=== PATIENT | male | born 1995 | race African-American/Black ===

== ENCOUNTER 2017-03-27 19:17 | Inpatient (IN) ==
[2017-03-27] MEDS ORDERED: HYDROcod/ACETAMIN 7.5-325 MG/15 ML UDCUP PO STA (19:41)
[2017-03-27] MEDS ORDERED: SODIUM CHLORIDE 0.9% 1,000 ML IV STA (19:41)
--- NOTE | 2017-03-27 19:44 | Emergency Department Note ---
Dewey Guo Brittany, am scribing for, and in the presence of, Rodrigo Altman MD 19:43. Anupama Guo Charles R, MD, personally performed the services described in this documentation, ascribed by Inez Palomo in my presence, and it is both accurate and complete 943 . Arrival - Arrival Chief Complaint: Non-Specific Stated Complaint: swolen lymph nodes,can hardly talk ED Nursing Triage Note: C/O Swollen lymph nodes on right side of neck/pain. Onset 2 weeks ago. Pt reports that he went to see his PCP around the time of onset and was DX with sinus infection- reports taking and completing antibiotics given and the swelling to the right side of his neck is worse. + fever on and off since onset. FSG 345 at time of triage. Mode of Arrival: Ambulatory Limitations: No Limitations Source: Patient, RN Notes Reviewed - History of Present Illness HPI Narrative: Patient is a 22 y/o black male presenting to the ED with c/o swollen and painful lymph nodes to the right side of the neck that began 2 weeks ago. Patient states that he has had some fever, R earache, difficulty swallowing secondary to pain, and slight cough with this as well. Patient presented to PCP after initial onset and was diagnosed with sinus infection and placed on oral Penicillin. He has since completed the course of abx and reports that the swelling to the R side of his neck has gotten worse. Patient does have a history of IDDM and during triage patient was noted to be hyperglycemic with a blood glucose of 345 mg.dL. Patient denies history of Tonsillectomy. Patient has no further complaints. Allergies/Adverse Reactions: Allergies Allergy/AdvReac Type Severity Reaction Status Date / Time No Known Allergies Allergy Verified 03/21/15 16:57 Home Medications: Home Medications Medication Instructions Recorded Confirmed Type Insulin Aspart [NovoLOG] 0 - 15 units SUBCUT DIRECTED 03/21/15 03/27/17 History Insulin Glargine [Lantus] 16 units SUBCUT BEDTIME 03/21/15 03/27/17 History Insulin NPH Human Isophane 18 units SUBCUT DAILY 03/21/15 03/27/17 History [NovoLIN N] Review of System - Review of System 12 point system: reviewed and no additional remarkable complaints except as stated - Review of System Constitutional: Present: fever Head/Ears/Nose/Throat: Present: earache (Right), sore throat Respiratory: Present: cough Gastrointestinal: Absent: nausea, vomiting Medical,Surgical,& Family Hx - Medical History Endocrine: History of: Diabetes Mellitus (IDDM) - Social History Smoking Status: Never smoker Frequency of Alcohol Use: None Type of Drug Use: None Exam Vital Signs: Vital Signs Temperature 98.8 F 03/27/17 20:26 Pulse Rate 106 H 03/27/17 20:26 Respiratory Rate 18 03/27/17 20:26 Blood Pressure 141/93 03/27/17 20:26 O2 Sat by Pulse Oximetry 99 03/27/17 19:19 - General General appearance: alert, in no apparent distress - Head Head exam: Present: atraumatic, normocephalic - Eye Eye exam: Present: PERRL, EOMI - ENT ENT exam: Present: mucous membranes moist. Absent: normal oropharynx (large amount of mucus in the mouth; proper posterior oropharynx exam could not be performed secondary to patient not allowing full exam ) - Neck Neck exam: Present: full ROM, trachea midline, lymphadenopathy (submandibular and anterior chain "lit-up" per ER physician) - Chest Chest inspection: Present: symmetric chest wall rise - Respiratory Respiratory exam: Present: normal lung sounds bilaterally. Absent: respiratory distress - Cardiovascular Cardiovascular exam: Present: normal rhythm, tachycardia, normal heart sounds. Absent: regular rate - Abdominal Exam Abdominal exam: Present: soft, normal bowel sounds. Absent: tenderness - Extremities Exam Extremities exam: Present: normal inspection - Back Exam Back exam: Present: normal inspection - Neurological Exam Neurological exam: Present: alert, oriented X3, CN II-XII intact. Absent: motor sensory deficit - Psychiatric Psychiatric exam: Present: normal affect, normal mood - Skin Skin exam: Present: warm, dry, intact, normal color Course - Consultations Consultation #1: Hospitalist will admit patient Time: 22:06 Results - Labs CBC & BMP: 03/27/17 20:11 03/27/17 20:11 Lab Results: I have reviewed the patients labs Labs: Laboratory Tests 03/27/17 03/27/17 19:21 20:11 WBC 8.2 RBC 5.22 Hgb 13.4 L Hct 41.4 L MCV 79.3 L MCH 26 L Plt Count 341 MPV 9.5 L Lymph % (Auto) 16.5 L POC Glucose 345 H b-Hydroxybutyric mmol/L 6.1 H Microbiology 03/27/17 19:41 Throat Group A Streptococcus Rapid Screen - Final Negative for Grp A Strep Ag 03/27/17 19:41 Nasal Aspirate Influenza Types A,B Antigen (ZURI) - Final Negative for Influenza A Ag Negative for Influenza B Ag Laboratory Tests 03/27/17 03/27/17 20:11 20:11 Sodium 133 L Potassium 4.2 Chloride 96 L Carbon Dioxide 22 Anion Gap 19.2 H BUN 7 Creatinine 0.80 Glucose 352 H ALT < 9 L Alkaline Phosphatase 120 H Albumin 2.6 L Globulin 4.7 H Albumin/Globulin Ratio 0.5 L Infectious [place] Assay Negative - Diagnostic Findings Procedure: Chest x-ray: report reviewed by me ( No abnormality is seen.) Disposition Clinical Impression: Trismus, Hyperglycemia, Poor p.o. intake, Dysphasia, Increased drooling, Submandibular lymphadenopathy Case discussed with: patient Disposition: Still a Patient Condition: Stable Time of Disposition: 22:09
[2017-03-27] MEDS ORDERED: HYDROcod/ACETAMIN 7.5-325 MG/15 ML UDCUP ONE (19:50)
--- NOTE | 2017-03-27 20:07 | XRay Report ---
2 view chest. Indication: Shortness of breath. The heart and mediastinal contours are unremarkable. The pulmonary vasculature is normal. There is no consolidation, pneumothorax, or pleural effusion. The osseous structures are unremarkable. Impression: No abnormality is seen. PROCEDURE INTERPRETED AT [facility] DEPARTMENT OF RADIOLOGY Final Report Signed by: Dr. Christal Calvo
[2017-03-27 20:33] LABS: Basophils # 0.1 10*3/uL (0.0-0.2); Basophils % 0.6 % (0.0-0.8); Eosinophils % 0.2 % (0.00-10.9); Hematocrit 41.4 VOL% (42.0-52.0); Hemoglobin 13.4 GM/DL (14.0-18.0); Immature Granulocytes % 0.4 %; Immature Granulocytes Absolute 0.03 #; Lymphocytes # 1.4 10*3/uL (1.4-4.0); Lymphocytes % 16.5 % (21.2-54.2); Mean Corpuscular HGB Conc 32.4 GM/DL (32-36); Mean Corpuscular Hemoglobin 26 PG (27-34); Mean Corpuscular Volume 79.3 FL (87-102); Mean Platelet Volume 9.5 FL (9.6-12.0); Monocytes # 0.7 10*3/uL (0.11-0.8); Monocytes % 8.7 % (1.7-12.7); Neutrophils % 73.6 % (38.7-73.9); Platelet Count 341 T/CUMM (130-400); Red Blood Count 5.22 MC/CUMM (3.8-5.5); Red Cell Distribution Width 12.8 % (9.3-17.3); White Blood Count 8.2 T/CUMM (4-12)
[2017-03-27 20:51] LABS: Alanine Aminotransferase < 9 U/L (16-61); Albumin 2.6 G/DL (3.4-5.0); Alkaline Phosphatase 120 U/L (45-117); Aspartate Amino Transferase 10 U/L (0-37); Blood Urea Nitrogen 7 MG/DL (7-18); Calcium 8.8 MG/DL (8.5-10.1); Glucose 352 MG/DL (74-106); Magnesium 1.8 MG/DL (1.8-2.4); Osmolality,Calculated 277.4 MOS/KG (273-304); Potassium 4.2 MMOL/L (3.5-5.1); Sodium 133 MMOL/L (136-145); Total Protein 7.3 G/DL (6.4-8.3)
[2017-03-27] MEDS ORDERED: INSULIN REGULAR 100 UNIT/ML IV STA (20:54)
[2017-03-27] MEDS ORDERED: INSULIN REGULAR 100 UNIT/ML ONE (21:52)
[2017-03-27] MEDS ORDERED: ONDANSETRON 4 MG/2 ML VIAL IV PRN (22:04)
[2017-03-27] MEDS ORDERED: ACETAMINOPHEN 325 MG TABLET PO PRN (22:04)
[2017-03-27] MEDS ORDERED: GLUCAGON 1 MG VIAL IM PRN (22:06)
[2017-03-27] MEDS ORDERED: DEXTROSE 50% 25 GM/50 ML SYRINGE IV PRN (22:06)
[2017-03-27] MEDS ORDERED: PIPERACILLIN/TAZOBACTAM 3,375 MG in SODIUM CHLORIDE 0.9% 100 ML IV STA (22:09)
--- NOTE | 2017-03-27 22:11 | Hospitalist History & Physical ---
<Barbara Mayfield - Last Filed: 03/27/17 22:35> Assessment and Plan - Time spent with patient Time spent with patient: Greater than 30 minutes (1) Diabetes mellitus, insulin dependent (IDDM), uncontrolled Status: Acute Assessment and plan: As above. Continue home medications. Current Visit: Yes Qualifiers: Diabetes mellitus complication status: with unspecified complications Qualified Code(s): E10.8 - Type 1 diabetes mellitus with unspecified complications; E10.65 - Type 1 diabetes mellitus with hyperglycemia (2) Anorexia Status: Acute Assessment and plan: As above. Clear liquid diet. Current Visit: Yes (3) Trismus Status: Acute Assessment and plan: Patient reports taking a 7-day course of penicillin ending 2 days ago with worsening symptoms. Continue penicillin IV Q4 hours. Add Clindamycin 600 mg IV Q6 hours. Current Visit: Yes (4) DVT prophylaxis Status: Acute Assessment and plan: Lovenox 40 mg SQ daily. Current Visit: Yes History of Present Illness Chief complaint: Jaw swelling, sore throat, headache History of present illness: Mr. Davis is a 22 year old male with a past medical history significant for IDDM who presented to the ED [facility] with complaints of right sided jaw swelling , sore throat, headache, and right ear discomfort x 2 weeks. He also complains of subjective fevers, nasal congestion, occasional dry cough, and sneezing. He reports that over the last week, it has became progressively more difficult for him to open his mouth, and right sided facial swelling started today. He has previously been treated with penicillin from his PCP for sinus infection, finishing his 7-day course of antibiotics about 2 days ago, and reports continuing to get worse. He denies N/V/D or any other symptoms. His work up in the ED included a normal white cell count, BG 352, and b-Hydroxybutyric acid 6.1. Flu, strep and mono tests were negative. A CT head and neck is pending. Hospitalist services were consulted, and the patient will be admitted for further evaluation and treatment. Home Medications Medication Instructions Recorded Confirmed Type Insulin Aspart [NovoLOG] 0 - 15 units SUBCUT DIRECTED 03/21/15 03/27/17 History Insulin Glargine [Lantus] 16 units SUBCUT BEDTIME 03/21/15 03/27/17 History Insulin NPH Human Isophane 18 units SUBCUT DAILY 03/21/15 03/27/17 History [NovoLIN N] Allergies Allergy/AdvReac Type Severity Reaction Status Date / Time No Known Allergies Allergy Verified 03/21/15 16:57 Medical,Surgical,& Family Hx - Medical History Endocrine: History of: Diabetes Mellitus (IDDM) - Surgical History Surgical History: noncontributory (Surgical history was discussed with the patient and he denies any past surgical history.) - Family History Family History: Reports;: Family Heart Disease, Family Hypertension, Family Stroke - Social History Smoking Status: Never smoker Have you smoked in the last 12 months: No Frequency of Alcohol Use: None Type of Drug Use: None Marital Status: Single Lives With:: Parent Functional capacity: independent ambulation - Constitutional Constitutional: Present: fever(s), malaise. Absent: chills, weakness - EENT Eyes: Absent: blurry vision, diplopia, loss of vision Ears: Present: ear pain (right). Absent: decreased hearing, ear discharge Nose, mouth and throat: Present: dysphagia, headache(s), nasal congestion, sore throat, other (submandibular swelling, trismus) - Cardiovascular Cardiovascular: Absent: chest pain at rest, dyspnea, dyspnea on exertion, edema , orthopnea, palpitations - Respiratory Respiratory: Present: cough. Absent: dyspnea, wheezing - Gastrointestinal Gastrointestinal: Absent: abdominal pain, diarrhea, nausea, vomiting - Genitourinary Genitourinary: Absent: dysuria, flank pain, urinary frequency - Musculoskeletal Musculoskeletal: Absent: arthralgias, joint swelling, muscle weakness, myalgias - Neurological Neurological: Absent: numbness, paresthesias, syncope - Psychiatric Psychiatric: Absent: anxiety, depression - Endocrine Endocrine: Absent: cold intolerance, polydipsia, polyphagia, polyuria - Hematologic/Lymphatic Hematologic/Lymphatic: Absent: easy bleeding, easy bruising Exam - Constitutional Vitals: Period Temp Pulse Resp BP Sys/Reinoso Pulse Ox Last 24 Hr 98.8 F-98.8 F 106-106 18-18 141-141/93-93 99 Exam: Constitutional System: Afebrile. Awake, alert and oriented x 3. No distress. No tremulousness. Head: Normocephalic, atraumatic. Ears, Nose and Throat System: Right ear pain, TM dull, excessive cerumen, but no redness. Right facial swelling noted; non-tender. Right submadibular swelling and firmness noted; mildly tender. Significant trismus noted. Eyes System: Pupils equal, round, and reactive. Extraocular muscles intact. Neck: Supple, without adenopathy, No jugular venous distention. No thyromegaly, neck mass, or prior surgery apparent. Respiratory System: Chest clear to auscultation. Cardiovascular System: Heart with tachycardic rate and regular rhythm. No murmur. GI System: Abdomen soft, nontender. Normo active bowel sounds present. Musculoskeletal System: Limbs with no pedal edema. Full distal pulses. Normal capillary refill. Neurological System: No discernable sensory deficit. No aphasia Psychiatric System: Conversation is rational Results - Labs CBC & BMP: 03/27/17 20:11 03/27/17 20:11 Lab Results: I have reviewed the past 24 hour labs - Diagnostic Findings Procedure: CT: pending (Soft tissues of neck. ) <Pamela Chris - Last Filed: 03/28/17 00:24> Assessment and Plan (1) Diabetes mellitus, insulin dependent (IDDM), uncontrolled Status: Acute Assessment and plan: Patient with elevated beta hydroxybutyric acid and normal CO2. Continue aggressive IV fluid hydration and sliding scale insulin with Accu-Cheks. Clear liquid diet and advance as tolerated. Current Visit: Yes Qualifiers: Diabetes mellitus complication status: with unspecified complications Qualified Code(s): E10.8 - Type 1 diabetes mellitus with unspecified complications; E10.65 - Type 1 diabetes mellitus with hyperglycemia (2) Anorexia Status: Acute Assessment and plan: Patient with decreased appetite secondary to sore throat and inability to open mouth completely. Follow-up CT and continue IV antibiotics. Current Visit: Yes (3) Trismus Status: Acute Assessment and plan: Follow-up CT of the neck and soft tissues. Patient failed outpatient penicillin therapy. Will start clindamycin 600 mg IV every 6. Current Visit: Yes History of Present Illness History of present illness: Mr. Davis is a 22 year old male with insulin-dependent diabetes presented to the emergency department with right-sided neck pain and inability to open the jaw completely. I have personally seen and examined this patient today. I agree with the below note as prepared by the advanced practice provider. I agree with the assessment and plan. Case discussed with Barbara Mayfield NP. CT scan of the neck and soft tissue shows a right mandibular third molar dental caries and apical tooth abscess with posterior medial cortical breakthrough with a 2.5 x 1.9 x 2.7 cm right oral floor odontogenic abscess with adjacent inflammation and edema. The patient is being admitted to the hospital service for IV antibiotics and consultation with oral maxillofacial surgery. His home medications were reviewed and reconciled. The patient is a full code. Further recommendations depend on his response to therapy. He feels penicillin as an outpatient and will be started on clindamycin. Pain medications have been ordered and insulin therapy continued. Medical,Surgical,& Family Hx - Medical History Endocrine: History of: Diabetes Mellitus (IDDM) - Surgical History Surgical History: noncontributory - Social History Smoking Status: Never smoker Frequency of Alcohol Use: None Type of Drug Use: None 12 point system: reviewed and no additional remarkable complaints except as stated Exam - Constitutional Vitals: Period Temp Pulse Resp BP Sys/Reinoso Pulse Ox Last 24 Hr 98.8 F-98.8 F 106-106 18-18 141-141/93-93 99 Results - Labs CBC & BMP: 03/27/17 20:11 03/27/17 20:11 Lab Results: I have reviewed the past 24 hour labs
[2017-03-27 22:18] LABS: ABG Base Excess -5.7 MMOL/L (-2.5-2.5); ABG HCO3 19.7 MMOL/L (20-26); ABG Oxygen Saturation 96.2 % (95-100); ABG PCO2 34.8 MM HG (35-48); ABG PH 7.349 (7.35-7.45); ABG PO2 88.7 MM HG (80-95); Allen Test Positive; Pt O2 Delivery Device Room Air
[2017-03-27] MEDS ORDERED: PIPERACILLIN/TAZOBACTAM 3,375 MG VIAL IV ONE (22:41)
[2017-03-27] MEDS ORDERED: SODIUM CHLORIDE 0.9% 100 ML IV ONE (22:41)
[2017-03-27] MEDS ORDERED: SODIUM CHLORIDE 0.9% IV SCH (23:00)
[2017-03-27] MEDS ORDERED: PENICILLIN POTASSIUM IV SCH (23:00)
[2017-03-27] MEDS: SODIUM CHLORIDE 0.9% 1,000 ML IV SCH (23:55)
[2017-03-28] MEDS: ZALEPLON 5 MG CAPSULE PO PRN ×2 (02:05→23:06)
[2017-03-28] MEDS: MORPHINE 2 MG/1 ML SYRINGE IV PRN ×4 (02:14→23:06)
[2017-03-28] MEDS: CLINDAMYCIN INJ 600 MG in PREMIX 1 EACH IV SCH ×2 (03:49→08:51)
[2017-03-28 05:43] LABS: Basophils # 0.1 10*3/uL (0.0-0.2); Basophils % 0.7 % (0.0-0.8); Eosinophils % 0.1 % (0.00-10.9); Hematocrit 39.3 VOL% (42.0-52.0); Hemoglobin 12.4 GM/DL (14.0-18.0); Immature Granulocytes % 0.8 %; Immature Granulocytes Absolute 0.08 #; Lymphocytes # 1.1 10*3/uL (1.4-4.0); Mean Corpuscular HGB Conc 31.6 GM/DL (32-36); Mean Corpuscular Hemoglobin 25 PG (27-34); Mean Platelet Volume 9.5 FL (9.6-12.0); Monocytes # 0.9 10*3/uL (0.11-0.8); Monocytes % 8.6 % (1.7-12.7); Neutrophils # 8.5 10*3/uL (1.4-7.4); Neutrophils % 79.8 % (38.7-73.9); Platelet Count 360 T/CUMM (130-400); Red Blood Count 4.91 MC/CUMM (3.8-5.5); Red Cell Distribution Width 12.9 % (9.3-17.3); White Blood Count 10.6 T/CUMM (4-12)
[2017-03-28 06:12] LABS: Albumin 2.3 G/DL (3.4-5.0); Bilirubin,Total 0.5 MG/DL (0.2-1.0); Calcium 8.4 MG/DL (8.5-10.1); Magnesium 1.7 MG/DL (1.8-2.4); Potassium 4.5 MMOL/L (3.5-5.1)
[2017-03-28] MEDS: ENOXAPARIN 40 MG/0.4 ML SYRINGE SUBCUT SCH (08:23)
--- NOTE | 2017-03-28 08:23 | CT Report ---
CT of the soft tissues of the neck with intravenous contrast. Indication: Difficulty swallowing. Painful lymphadenopathy. 80 cc Omni 350. No prior study. There is a preliminary report from [facility]. Axial images were obtained with sagittal and coronal reconstructions. There is mild mucosal thickening within the ethmoid sinuses. There is dental caries involving the right mandibular third molar, with periapical lucency, and dehiscent of the cortex and the small area inferiorly and medially. In the right submandibular space, there is increased soft tissue prominence, with inflammation, and small adjacent pockets of fluid which in toto measure 2.5 x 1.9 cm. There is extension of inflammation into the right battery starter space, and displacement of the right submandibular gland. There is mass effect on the airway, with effacement of the right vallecula and pyriform recess. There are multiple small and borderline enlarged lymph nodes in the submental and right submandibular regions and the right anterior cervical chain, likely reactive. The left submandibular gland has a normal appearance. The parotid glands have a normal appearance. The thyroid gland has a normal appearance. The lung apices are clear. The remaining bony structures are unremarkable. No evidence of tonsillar enlargement. Impression: In the right submandibular area, there are findings consistent with inflammation/abscess, associated with a right third molar dental caries and periapical abscess. The CT exam was performed using one or more of the following dose reduction techniques: Automated exposure control, adjustment of the mA and/or kV according to patient size, or use of iterative reconstruction technique. PROCEDURE INTERPRETED AT [facility] DEPARTMENT OF RADIOLOGY Final Report Signed by: Dr. Christal Calvo
[2017-03-28] MEDS: PANTOPRAZOLE 40 MG TABLET PO SCH (08:26)
[2017-03-28] MEDS: INSULIN LISPRO 100 UNIT/ML SUBCUT SCH ×4 (08:27→20:22)
[2017-03-28] MEDS: INSULIN NPH 100 UNIT/ML SUBCUT SCH (08:50)
--- NOTE | 2017-03-28 10:55 | Hospitalist Progress Note ---
Assessment and Plan (1) Mandibular abscess Status: Acute Assessment and plan: Reportedly this gentleman felt penicillin V at home. He uses it for about a week and a half. Reasons for this could be evaluated do not believe if this organism was sensitive on and failed treatment if treated well. However bioavailability can be an issue in the community based treatment. The other thing that if the patient needs to be drained patient will definitely clinically fell. Believe use of a gold penicillin based treatment with antiepileptic to Ms. is an inferior oral antibiotic. Will therefore continue P penicillin tazobactam was initiated in the emergency room. I would discontinue the clindamycin. I believe the patient is been consulted to oral surgery and they should go to see the patient either later today or tomorrow. Current Visit: Yes (2) Trismus Status: Acute Assessment and plan: Get physical therapy to get involved in management of this patient. Multiple recommended treatment for trismus to include use of TheraBite system and the Dynasplint trismus system. Tolerating the treatments that the physical therapy can provide here would also help. Most important that this treatment is to start fast. Current Visit: Yes (3) Diabetes mellitus, insulin dependent (IDDM), uncontrolled Status: Acute Assessment and plan: Continue current management Current Visit: Yes Qualifiers: Diabetes mellitus complication status: with unspecified complications Qualified Code(s): E10.8 - Type 1 diabetes mellitus with unspecified complications; E10.65 - Type 1 diabetes mellitus with hyperglycemia Hospitalist: Subjective Interval history: Patient has been seen interviewed and examined and chart has been reviewed. The gentleman was admitted to observation is going to see to inpatient because he needs more treatment in the hospital. Admitted to the hospital with trismus severe pain in the lower jaw also in the lower part of the neck. He has a pretty Doppler done to abscess that needs oral surgery involvement in his evaluation and management. He also needs physical therapy for management of his trismus. Exam - Constitutional Vitals: Period Temp Pulse Resp BP Sys/Reinoso Pulse Ox Last 24 Hr 98.3 F-99.2 F 100-106 16-18 113-152/64-93 97-99 General appearance: normal weight, no acute distress - Head Head exam: Present: normocephalic, atraumatic - Eye Eye exam: Present: EOMI Pupils: Present: HÉCTOR - ENT ENT exam: Present: other (Patient unable to open his mouth is no significant tenderness at the angle of the jaw and submandibular area. Mild edema is even having problems speaking.) - Respiratory Respiratory exam: Present: clear to auscultation bilaterally - Cardiovascular Cardiovascular exam: Present: regular rate and rhythm - GI/Abdominal GI/Abdominal exam: Present: normal bowel sounds, soft - Extremities Exam Extremities exam: Present: full ROM - Neurological Exam Neurological exam: Present: alert, oriented X3, CN II-XII intact - Psychiatric Psychiatric exam: Present: normal affect, normal mood - Skin Skin exam: Present: normal color, warm, dry Results - Labs CBC & BMP: 03/28/17 04:48 03/28/17 04:48 Lab Results: I have reviewed the past 24 hour labs (His labs were drawn this morning)
[2017-03-28] MEDS: LACTOBACILLUS RHAMNOSUS GG CAPSULE PO SCH ×2 (11:50→20:24)
[2017-03-28] MEDS: SODIUM CHLORIDE 0.9% 1,000 ML IV SCH (11:53)
[2017-03-28] MEDS: PIPERACILLIN/TAZOBACTAM 3,375 MG in SODIUM CHLORIDE 0.9% 100 ML IV SCH ×2 (11:54→20:22)
[2017-03-28] MEDS ORDERED: INSULIN GLARGINE 100 UNIT/ML SUBCUT SCH (21:00)
[2017-03-29] MEDS: SODIUM CHLORIDE 0.9% 1,000 ML IV SCH ×5 (00:28→23:45)
[2017-03-29] MEDS: PIPERACILLIN/TAZOBACTAM 3,375 MG in SODIUM CHLORIDE 0.9% 100 ML IV SCH ×3 (02:42→20:08)
[2017-03-29 08:29] LABS: Basophils % 0.3 % (0.0-0.8); Eosinophils % 0.1 % (0.00-10.9); Hematocrit 41.7 VOL% (42.0-52.0); Hemoglobin 13.5 GM/DL (14.0-18.0); Immature Granulocytes % 0.6 %; Immature Granulocytes Absolute 0.05 #; Lymphocytes # 0.9 10*3/uL (1.4-4.0); Lymphocytes % 10.3 % (21.2-54.2); Mean Corpuscular HGB Conc 32.4 GM/DL (32-36); Mean Corpuscular Hemoglobin 25 PG (27-34); Mean Corpuscular Volume 78.4 FL (87-102); Monocytes # 0.7 10*3/uL (0.11-0.8); Monocytes % 7.8 % (1.7-12.7); Neutrophils # 7.3 10*3/uL (1.4-7.4); Neutrophils % 80.9 % (38.7-73.9); Platelet Count 404 T/CUMM (130-400); Red Blood Count 5.32 MC/CUMM (3.8-5.5); Red Cell Distribution Width 12.9 % (9.3-17.3)
--- NOTE | 2017-03-29 09:01 | Hospitalist Progress Note ---
Assessment and Plan (1) Diabetes mellitus, insulin dependent (IDDM), uncontrolled Status: Acute Assessment and plan: Blood glucose levels remain markedly elevated since admission. Hemoglobin A1c obtained at the time of admission was noted at 13.5. This is a indication of poor glycemic control. We will consult the back order clerk for reeducation. In addition, we will increase the p.m. Lantus dose to 25 units at bedtime and increase the NPH dose to 25 units daily. We will monitor blood glucose levels throughout the clinical encounter and adjust as needed. Current Visit: Yes Qualifiers: Diabetes mellitus complication status: with unspecified complications Qualified Code(s): E10.8 - Type 1 diabetes mellitus with unspecified complications; E10.65 - Type 1 diabetes mellitus with hyperglycemia (2) Mandibular abscess Status: Acute Assessment and plan: The patient's face remains edematous. We will continue IV antibiotic coverage as previously ordered. We will await [facility] evaluation for further recommendations. Current Visit: Yes Hospitalist: Subjective Interval history: Patient seen and examined; chart reviewed. No significant overnight events reported per staff. Right-sided facial swelling remains. Awaiting O[facility] evaluation for further recommendations. Exam - Constitutional Vitals: Period Temp Pulse Resp BP Sys/Reinoso Pulse Ox Last 24 Hr 98.1 F-99.3 F 82-100 16-20 114-143/69-84 98-99 General appearance: normal weight, no acute distress - Head Head exam: Present: normal inspection, normocephalic - Eye Eye exam: Present: EOMI. Absent: conjunctival injection Pupils: Present: HÉCTOR, normal accommodation - ENT ENT exam: Present: other (Right-sided facial edema remains) - Neck Neck exam: Present: normal inspection. Absent: lymphadenopathy, meningismus, tenderness, thyromegaly - Respiratory Respiratory exam: Present: clear to auscultation bilaterally. Absent: rales, rhonchi, stridor, wheezes - Cardiovascular Cardiovascular exam: Present: regular rate and rhythm. Absent: carotid bruit, diastolic murmur, gallop, JVD, rubs, systolic murmur, tachycardia - GI/Abdominal GI/Abdominal exam: Present: normal bowel sounds, soft - Extremities Exam Extremities exam: Present: normal inspection, normal capillary refill, full ROM. Absent: edema - Back Exam Back exam: Present: normal inspection - Neurological Exam Neurological exam: Present: alert, oriented X3, CN II-XII intact - Psychiatric Psychiatric exam: Present: normal affect, normal mood - Skin Skin exam: Present: normal color, warm, dry Results - Labs CBC & BMP: 03/29/17 08:07 03/28/17 04:48 Lab Results: I have reviewed the past 24 hour labs
[2017-03-29 09:02] LABS: Alanine Aminotransferase < 9 U/L (16-61); Albumin 2.1 G/DL (3.4-5.0); Alkaline Phosphatase 121 U/L (45-117); Aspartate Amino Transferase 10 U/L (0-37); Blood Urea Nitrogen 8 MG/DL (7-18); Calcium 8.7 MG/DL (8.5-10.1); Glucose 123 MG/DL (74-106); Magnesium 1.8 MG/DL (1.8-2.4); Osmolality,Calculated 271.8 MOS/KG (273-304); Potassium 4.1 MMOL/L (3.5-5.1); Sodium 137 MMOL/L (136-145); Total Protein 6.3 G/DL (6.4-8.3)
[2017-03-29] MEDS: INSULIN LISPRO 100 UNIT/ML SUBCUT SCH ×4 (09:51→20:08)
[2017-03-29] MEDS: LACTOBACILLUS RHAMNOSUS GG CAPSULE PO SCH ×2 (09:53→20:08)
[2017-03-29] MEDS: PANTOPRAZOLE 40 MG TABLET PO SCH (09:53)
[2017-03-29] MEDS: ENOXAPARIN 40 MG/0.4 ML SYRINGE SUBCUT SCH (09:54)
[2017-03-29] MEDS: INSULIN NPH 100 UNIT/ML SUBCUT SCH (09:55)
--- NOTE | 2017-03-29 10:03 | Consultation ---
Assessment and Plan - Time spent with patient Time spent with patient: Less than 30 minutes (1) Mandibular abscess Status: Acute Assessment and plan: Patient with right submandiubular abscess due to carious tooth 17 to require I& D and extraction of tooth 1. NPO after midnight tonight with plan for surgery Wednesday 2. peridex oral rinse 3. cont iv abx, pain control 4. head elevated, warm compresses to face Current Visit: Yes History of Present Illness - Consult Narrative Reason for consult: dental abscess History of present illness: Mr. Davis is a 22 year old male with 2 weeks of right ear pain and increasing mandibular pain. Noted right facial swelling a few days prior and then became trismic. No f/c, no dysphagia, no dyspnea. CT scan shows right submandibular abscess likely secondary to carious tooth #17. CC: Mikhail Uribe MD - Home Medications and Allergies Home Medications: Home Medications Medication Instructions Recorded Confirmed Type Insulin Aspart [NovoLOG] 0 - 15 units SUBCUT DIRECTED 03/21/15 03/28/17 History Insulin Glargine [Lantus] 16 units SUBCUT BEDTIME 03/21/15 03/28/17 History Insulin NPH Human Isophane 18 units SUBCUT DAILY 03/21/15 03/28/17 History [NovoLIN N] Allergies/Adverse Reactions: Allergies Allergy/AdvReac Type Severity Reaction Status Date / Time No Known Allergies Allergy Verified 03/21/15 16:57 - Constitutional Constitutional: Present: as per HPI - EENT Ears: Present: ear pain Nose, mouth and throat: Present: as per HPI, other (right submandibular swelling and pain, no drainage, mild trismus) Medical,Surgical,& Family Hx - Medical History Endocrine: History of: Diabetes Mellitus (IDDM) - Surgical History Abdominal Surgeries: Patient denies: Abdominal Surgery Reproductive Surgeries: Patient denies;: Genitourinary Surgery - Family History Family History: Reports;: Family Heart Disease, Family Hypertension, Family Stroke - Social History Smoking Status: Never smoker Frequency of Alcohol Use: None Type of Drug Use: None Exam - Constitutional Vitals: Period Temp Pulse Resp BP Sys/Reinoso Pulse Ox Last 24 Hr 98.1 F-99.3 F 82-100 16-20 114-143/69-84 98-99 General appearance: mild distress - ENT ENT exam: Present: other (right submandibular swelling, no erythema, no drainage , carious tooth #17, no floor of mouth fullness, no tongue elevation, no uvular deviation) - Neck Neck exam: Present: tenderness, other (right submandibular swelling) Results - Labs CBC & BMP: 03/29/17 08:07 03/29/17 08:07 Lab Results: I have reviewed the past 24 hour labs
[2017-03-29] MEDS: INSULIN GLARGINE 100 UNIT/ML SUBCUT SCH (20:10)
[2017-03-29] MEDS: CHLORHEXIDINE 0.12% ORAL RINSE 60 ML BOTTLE SWISH/SPIT SCH (20:10)
[2017-03-29] MEDS: ZALEPLON 5 MG CAPSULE PO PRN (23:46)
[2017-03-30] MEDS: MORPHINE 2 MG/1 ML SYRINGE IV PRN ×2 (04:45→20:19)
[2017-03-30] MEDS: PIPERACILLIN/TAZOBACTAM 3,375 MG in SODIUM CHLORIDE 0.9% 100 ML IV SCH ×3 (04:50→18:31)
[2017-03-30 06:57] LABS: Basophils % 0.6 % (0.0-0.8); Eosinophils % 0.3 % (0.00-10.9); Hematocrit 39.1 VOL% (42.0-52.0); Hemoglobin 12.6 GM/DL (14.0-18.0); Immature Granulocytes % 0.5 %; Immature Granulocytes Absolute 0.03 #; Lymphocytes # 1.2 10*3/uL (1.4-4.0); Lymphocytes % 18.2 % (21.2-54.2); Mean Corpuscular HGB Conc 32.2 GM/DL (32-36); Mean Corpuscular Hemoglobin 26 PG (27-34); Mean Corpuscular Volume 79.1 FL (87-102); Mean Platelet Volume 9.3 FL (9.6-12.0); Monocytes # 0.7 10*3/uL (0.11-0.8); Monocytes % 11.2 % (1.7-12.7); Neutrophils # 4.5 10*3/uL (1.4-7.4); Neutrophils % 69.2 % (38.7-73.9); Platelet Count 394 T/CUMM (130-400); Red Blood Count 4.94 MC/CUMM (3.8-5.5); White Blood Count 6.4 T/CUMM (4-12)
[2017-03-30 07:33] LABS: Alanine Aminotransferase < 6 U/L (16-61); Albumin 1.8 G/DL (3.4-5.0); Alkaline Phosphatase 107 U/L (45-117); Aspartate Amino Transferase 6 U/L (0-37); Blood Urea Nitrogen 4 MG/DL (7-18); Calcium 8.3 MG/DL (8.5-10.1); Glucose 180 MG/DL (74-106); Magnesium 1.8 MG/DL (1.8-2.4); Osmolality,Calculated 282.3 MOS/KG (273-304); Phosphorous 2.8 MG/DL (2.5-4.9); Sodium 141 MMOL/L (136-145); Total Protein 5.6 G/DL (6.4-8.3)
[2017-03-30] MEDS: ENOXAPARIN 40 MG/0.4 ML SYRINGE SUBCUT SCH (08:02)
[2017-03-30] MEDS: INSULIN LISPRO 100 UNIT/ML SUBCUT SCH ×4 (08:02→20:28)
--- NOTE | 2017-03-30 08:15 | Hospitalist Progress Note ---
<Alirio Fink - Last Filed: 03/30/17 08:13> Assessment and Plan (1) Diabetes mellitus, insulin dependent (IDDM), uncontrolled Status: Acute Assessment and plan: Blood glucose levels remain markedly elevated since admission. Hemoglobin A1c obtained at the time of admission was noted at 13.5. This is a indication of poor glycemic control. We will consult the healthcare educator for reeducation. In addition, we will increase the p.m. Lantus dose to 25 units at bedtime and increase the NPH dose to 25 units daily. We will monitor blood glucose levels throughout the clinical encounter and adjust as needed. 03/30-blood glucose levels remain moderately elevated. Insulin doses were adjusted on yesterday. I feel that the fluctuations and the patient's glucose levels are secondary to the current infectious process. We will continue monitor blood glucose levels closely. Current Visit: Yes Qualifiers: Diabetes mellitus complication status: with unspecified complications Qualified Code(s): E10.8 - Type 1 diabetes mellitus with unspecified complications; E10.65 - Type 1 diabetes mellitus with hyperglycemia (2) Mandibular abscess Status: Acute Assessment and plan: The patient's face remains edematous. We will continue IV antibiotic coverage as previously ordered. We will await OMF evaluation for further recommendations. 03/30-patient seen and evaluated by OMFS on yesterday. We appreciate the input. We agree with the plan for scheduled I&D and tooth extraction on this a.m. Current Visit: Yes Hospitalist: Subjective Interval history: Patient seen and examined; chart reviewed. No significant overnight events reported per staff. Remains n.p.o. pending I&D and tooth extraction per OMFS this a.m. Exam - Constitutional Vitals: Period Temp Pulse Resp BP Sys/Reinoso Pulse Ox Last 24 Hr 98.2 F-98.7 F 91-104 18-20 113-128/71-86 96-100 General appearance: normal weight, no acute distress - Head Head exam: Present: normal inspection, normocephalic, other (Right-sided facial edema noted) - Eye Eye exam: Present: EOMI. Absent: conjunctival injection Pupils: Present: HÉCTOR, normal accommodation - ENT ENT exam: Present: normal exam (Right-sided facial edema), other (Right-sided facial edema) - Neck Neck exam: Absent: normal inspection (Right-sided neck edema) - Respiratory Respiratory exam: Present: clear to auscultation bilaterally - Cardiovascular Cardiovascular exam: Present: regular rate and rhythm. Absent: carotid bruit, diastolic murmur, gallop, JVD, rubs, systolic murmur - GI/Abdominal GI/Abdominal exam: Present: normal bowel sounds, soft - Extremities Exam Extremities exam: Present: normal inspection, normal capillary refill, full ROM. Absent: edema - Back Exam Back exam: Present: normal inspection - Neurological Exam Neurological exam: Present: alert, oriented X3, CN II-XII intact - Psychiatric Psychiatric exam: Present: normal affect, normal mood - Skin Skin exam: Present: normal color, warm, dry Results - Labs CBC & BMP: 03/30/17 06:24 03/30/17 06:24 Lab Results: I have reviewed the past 24 hour labs <Aubrey Ordoñez - Last Filed: 03/30/17 09:25> Hospitalist: Subjective Interval history: Patient continues on intravenous antibiotics and is scheduled to undergo incision and drainage of his mandibular abscess today. He continues on glargine and NPH insulin in addition to sliding scale insulin coverage. I have interviewed the patient, examined the patient, reviewed available laboratory tests. I agree with the assessment and plans of Alirio RIOJAS. She will wait swing bed placement. Exam - Constitutional Vitals: Period Temp Pulse Resp BP Sys/Reinoso Pulse Ox Last 24 Hr 98.2 F-98.7 F 91-104 18-20 113-128/71-86 96-100 Results - Labs CBC & BMP: 03/30/17 06:24 03/30/17 06:24
[2017-03-30] MEDS: SODIUM CHLORIDE 0.9% 1,000 ML IV SCH ×2 (09:06→14:14)
[2017-03-30] MEDS: CHLORHEXIDINE 0.12% ORAL RINSE 60 ML BOTTLE SWISH/SPIT SCH ×2 (09:06→20:20)
[2017-03-30] MEDS ORDERED: CHLORHEXIDINE 0.12% ORAL RINSE 60 ML BOTTLE SWISH/SPIT ONE (12:54)
[2017-03-30] MEDS ORDERED: LIDOCAINE 1%/EPI INJ 20 ML VIAL ONE (12:55)
--- NOTE | 2017-03-30 13:48 | Operative Note ---
Date of procedure: 03/30/17 Pre-op diagnosis: right masseteric space abscess, carious tooth #32 Post-op diagnosis: same Procedure: incision and drainage right masseteric space abscess, extraction of tooth #32 Anesthesia: JAVIERA, local Surgeon / Physician: Singh Arce Estimated blood loss: none Specimens: none sent Condition: stable Disposition: PACU Results - Labs CBC & BMP: 03/30/17 06:24 03/30/17 06:24 Discharge Plan - Discharge Medications No Action Insulin Glargine [Lantus] 16 units SUBCUT BEDTIME Insulin NPH Human Isophane [NovoLIN N] 18 units SUBCUT DAILY Insulin Aspart [NovoLOG] 0 - 15 units SUBCUT DIRECTED - Follow Up or Referral - Forms/Instructions
--- NOTE | 2017-03-30 13:50 | Event Note ---
s/p I&D right masseteric space abscess and extraction of tooth #32 1. advance diet as tolerated 2. head elevated, ice pack to right face x 24 hours then switch to warm compresses 3. cont iv abx, peridex oral rinse, pain control 4. cotton ball/gauze to extraction site when awake 5. f/u with general dentist
[2017-03-30] MEDS ORDERED: fentaNYL 100 MCG/2 ML VIAL ONE (13:51)
[2017-03-30] MEDS ORDERED: MIDAZOLAM 2 MG/2 ML VIAL ONE (13:51)
[2017-03-30] MEDS ORDERED: PROPOFOL 200 MG/20 ML VIAL IV ONE (13:51)
[2017-03-30] MEDS ORDERED: SUCCINYLCHOLINE 200 MG/10 ML VIAL ONE (13:52)
[2017-03-30] MEDS ORDERED: ONDANSETRON 4 MG/2 ML VIAL ONE (13:52)
[2017-03-30] MEDS ORDERED: DEXAMETHASONE 20 MG/5 ML VIAL ONE (13:52)
[2017-03-30] MEDS ORDERED: SEVOFLURANE 1 UNIT/15 MINUTE INH ONE (13:54)
[2017-03-30] MEDS ORDERED: HYDROmorphone 2 MG/1 ML VIAL ONE (13:59)
[2017-03-30] MEDS: HYDROmorphone 2 MG/1 ML VIAL IV PRN ×2 (14:00→14:10)
--- NOTE | 2017-03-30 14:14 | Anesthesia Post-Op ---
Anesthesia Post OP - Post Ansesthetic Evaluation Patient seen in post op: Yes Resp: within normal limits CV: within normal limits Mental: within normal limits Temp: within normal limits [id number]: within normal limits Nausea and Vomiting: within normal limits Pain: within normal limits
[2017-03-30] MEDS: PANTOPRAZOLE 40 MG TABLET PO SCH (14:48)
[2017-03-30] MEDS: INSULIN NPH 100 UNIT/ML SUBCUT SCH (14:48)
[2017-03-30] MEDS: LACTOBACILLUS RHAMNOSUS GG CAPSULE PO SCH ×2 (14:48→20:20)
[2017-03-30] MEDS: INSULIN GLARGINE 100 UNIT/ML SUBCUT SCH (20:23)
[2017-03-31] MEDS: SODIUM CHLORIDE 0.9% 1,000 ML IV SCH ×3 (02:37→18:03)
[2017-03-31] MEDS: PIPERACILLIN/TAZOBACTAM 3,375 MG in SODIUM CHLORIDE 0.9% 100 ML IV SCH ×3 (02:39→19:53)
[2017-03-31 07:36] LABS: Basophils % 0.5 % (0.0-0.8); Eosinophils % 0.1 % (0.00-10.9); Hematocrit 36.6 VOL% (42.0-52.0); Hemoglobin 11.9 GM/DL (14.0-18.0); Immature Granulocytes % 0.8 %; Immature Granulocytes Absolute 0.06 #; Lymphocytes # 1.9 10*3/uL (1.4-4.0); Lymphocytes % 23.9 % (21.2-54.2); Mean Corpuscular HGB Conc 32.5 GM/DL (32-36); Mean Corpuscular Hemoglobin 25 PG (27-34); Mean Platelet Volume 8.8 FL (9.6-12.0); Monocytes # 0.7 10*3/uL (0.11-0.8); Monocytes % 9.2 % (1.7-12.7); Neutrophils # 5.1 10*3/uL (1.4-7.4); Neutrophils % 65.5 % (38.7-73.9); Platelet Count 420 T/CUMM (130-400); Red Blood Count 4.69 MC/CUMM (3.8-5.5); Red Cell Distribution Width 13.1 % (9.3-17.3); White Blood Count 7.8 T/CUMM (4-12)
[2017-03-31 08:13] LABS: Alanine Aminotransferase < 6 U/L (16-61); Albumin 1.6 G/DL (3.4-5.0); Alkaline Phosphatase 105 U/L (45-117); Aspartate Amino Transferase 9 U/L (0-37); Bilirubin,Total < 0.39 MG/DL (0.2-1.0); Blood Urea Nitrogen 8 MG/DL (7-18); Calcium 8.2 MG/DL (8.5-10.1); Glucose 228 MG/DL (74-106); Magnesium 1.8 MG/DL (1.8-2.4); Osmolality,Calculated 281.5 MOS/KG (273-304); Phosphorous 3.1 MG/DL (2.5-4.9); Sodium 139 MMOL/L (136-145); Total Protein 5.2 G/DL (6.4-8.3)
--- NOTE | 2017-03-31 08:30 | Hospitalist Progress Note ---
<Alirio Fink - Last Filed: 03/31/17 08:28> Assessment and Plan (1) Diabetes mellitus, insulin dependent (IDDM), uncontrolled Status: Acute Assessment and plan: Blood glucose levels remain markedly elevated since admission. Hemoglobin A1c obtained at the time of admission was noted at 13.5. This is a indication of poor glycemic control. We will consult the software educator for reeducation. In addition, we will increase the p.m. Lantus dose to 25 units at bedtime and increase the NPH dose to 25 units daily. We will monitor blood glucose levels throughout the clinical encounter and adjust as needed. 03/30-blood glucose levels remain moderately elevated. Insulin doses were adjusted on yesterday. I feel that the fluctuations and the patient's glucose levels are secondary to the current infectious process. We will continue monitor blood glucose levels closely. 03/31-continue Accu-Cheks with sliding scale coverage. Current Visit: Yes Qualifiers: Diabetes mellitus complication status: with unspecified complications Qualified Code(s): E10.8 - Type 1 diabetes mellitus with unspecified complications; E10.65 - Type 1 diabetes mellitus with hyperglycemia (2) Mandibular abscess Status: Acute Assessment and plan: The patient's face remains edematous. We will continue IV antibiotic coverage as previously ordered. We will await OMF evaluation for further recommendations. 03/30-patient seen and evaluated by OMFS on yesterday. We appreciate the input. We agree with the plan for scheduled I&D and tooth extraction on this a.m. 03/31-postop day 1 status post I&D and tooth extraction on yesterday by OMFS. We appreciate the input. We will continue IV antibiotic coverage as previously ordered. Current Visit: Yes Hospitalist: Subjective Interval history: Patient seen and examined; chart reviewed. No significant overnight events reported per staff. Status post I&D on yesterday per OMFS. Exam - Constitutional Vitals: Period Temp Pulse Resp BP Sys/Reinoso Pulse Ox Last 24 Hr 97.1 F-100.6 F 82-110 16-20 120-142/68-103 97-100 General appearance: normal weight, no acute distress - Head Head exam: Present: normal inspection, normocephalic, atraumatic - Eye Eye exam: Present: EOMI. Absent: conjunctival injection Pupils: Present: HÉCTOR, normal accommodation - ENT ENT exam: Present: other (Right-sided facial swelling remains) - Neck Neck exam: Present: normal inspection, other (Right-sided neck edema noted) - Respiratory Respiratory exam: Present: clear to auscultation bilaterally. Absent: rales, rhonchi, stridor, wheezes - Cardiovascular Cardiovascular exam: Present: regular rate and rhythm. Absent: carotid bruit, diastolic murmur, gallop, JVD, rubs, systolic murmur - GI/Abdominal GI/Abdominal exam: Present: normal bowel sounds, soft - Extremities Exam Extremities exam: Present: normal inspection, normal capillary refill, full ROM. Absent: edema - Back Exam Back exam: Present: normal inspection - Neurological Exam Neurological exam: Present: alert, oriented X3, CN II-XII intact - Psychiatric Psychiatric exam: Present: normal affect, normal mood - Skin Skin exam: Present: normal color, warm, dry Results - Labs CBC & BMP: 03/31/17 07:22 03/31/17 07:22 Lab Results: I have reviewed the past 24 hour labs <Aubrey Ordoñez - Last Filed: 03/31/17 11:11> Hospitalist: Subjective Interval history: Patient is stable day 1 status post incision and drainage of mandibular abscess and tooth extraction. Patient continues on intravenous antibiotics, as recommended by oral surgery. He continues on sliding scale insulin coverage. His blood glucose this morning was 228. We plan to continue the antibiotics and the sliding scale insulin coverage. Exam - Constitutional Vitals: Period Temp Pulse Resp BP Sys/Reinoso Pulse Ox Last 24 Hr 97.1 F-100.6 F 78-110 16-20 120-142/68-103 96-100 Results - Labs CBC & BMP: 03/31/17 07:22 03/31/17 07:22
[2017-03-31] MEDS: INSULIN NPH 100 UNIT/ML SUBCUT SCH (09:33)
[2017-03-31] MEDS: INSULIN LISPRO 100 UNIT/ML SUBCUT SCH ×4 (09:33→20:00)
[2017-03-31] MEDS: PANTOPRAZOLE 40 MG TABLET PO SCH (09:34)
[2017-03-31] MEDS: ENOXAPARIN 40 MG/0.4 ML SYRINGE SUBCUT SCH (09:34)
[2017-03-31] MEDS: LACTOBACILLUS RHAMNOSUS GG CAPSULE PO SCH ×2 (09:34→20:01)
[2017-03-31] MEDS: CHLORHEXIDINE 0.12% ORAL RINSE 60 ML BOTTLE SWISH/SPIT SCH ×2 (10:37→20:02)
--- NOTE | 2017-03-31 11:24 | Pathology Report from [facility] ---
[facility] [place] ACCESSION # : [id number] PATIENT NAME : Genaro Davis ORDERING DR : Singh Arce DDS CLINICAL HX: Dental caries with abscess POST-OP DX: Same SPECIMEN INFO: Tooth #2 GROSS DESCRIPTION: Received fresh labeled with the patients name GENARO DAVIS and consists of a single tooth with decay noted. Gross only. DIAGNOSIS FOR GENARO DAVIS: Carious tooth, gross only. COLLECTED DATE: 03/30/2017 [facility] [place] REPORT DATE: 03/31/2017 ELECTRONICALLY SIGNED BY: Cassandra Cedillo M.D. 03/31/2017 - 7:01:42 [email or web address]
[2017-03-31] MEDS: INSULIN GLARGINE 100 UNIT/ML SUBCUT SCH (20:01)
[2017-04-01] MEDS: SODIUM CHLORIDE 0.9% 1,000 ML IV SCH ×2 (02:40→08:49)
[2017-04-01] MEDS: PIPERACILLIN/TAZOBACTAM 3,375 MG in SODIUM CHLORIDE 0.9% 100 ML IV SCH ×3 (03:11→18:35)
[2017-04-01 06:58] LABS: Basophils # 0.1 10*3/uL (0.0-0.2); Basophils % 1.1 % (0.0-0.8); Eosinophils % 0.9 % (0.00-10.9); Hematocrit 34.2 VOL% (42.0-52.0); Immature Granulocytes % 0.9 %; Immature Granulocytes Absolute 0.04 #; Lymphocytes # 2.3 10*3/uL (1.4-4.0); Lymphocytes % 50.3 % (21.2-54.2); Mean Corpuscular HGB Conc 32.2 GM/DL (32-36); Mean Corpuscular Hemoglobin 26 PG (27-34); Mean Corpuscular Volume 79.7 FL (87-102); Mean Platelet Volume 9.4 FL (9.6-12.0); Monocytes # 0.4 10*3/uL (0.11-0.8); Monocytes % 9.1 % (1.7-12.7); Neutrophils # 1.7 10*3/uL (1.4-7.4); Neutrophils % 37.7 % (38.7-73.9); Platelet Count 425 T/CUMM (130-400); Red Blood Count 4.29 MC/CUMM (3.8-5.5); White Blood Count 4.6 T/CUMM (4-12)
[2017-04-01 07:25] LABS: Giant Platelets Few; Hypochromasia 1+; Lymphocytes 45 % (20-55); Ovalocytes Slight; Platelet Estimate Adequate; Segmented Neutrophils 40 % (50-85); Total Cells Counted 100
[2017-04-01 07:31] LABS: Alanine Aminotransferase < 6 U/L (16-61); Albumin 1.5 G/DL (3.4-5.0); Alkaline Phosphatase 90 U/L (45-117); Aspartate Amino Transferase 8 U/L (0-37); Bilirubin,Total < 0.39 MG/DL (0.2-1.0); Blood Urea Nitrogen 11 MG/DL (7-18); Calcium 7.4 MG/DL (8.5-10.1); Glucose 84 MG/DL (74-106); Magnesium 1.6 MG/DL (1.8-2.4); Osmolality,Calculated 283.8 MOS/KG (273-304); Potassium 3.6 MMOL/L (3.5-5.1); Sodium 144 MMOL/L (136-145); Total Protein 4.8 G/DL (6.4-8.3)
[2017-04-01] MEDS: LACTOBACILLUS RHAMNOSUS GG CAPSULE PO SCH ×2 (08:48→20:39)
[2017-04-01] MEDS: INSULIN NPH 100 UNIT/ML SUBCUT SCH ×2 (08:48→20:44)
[2017-04-01] MEDS: PANTOPRAZOLE 40 MG TABLET PO SCH (08:48)
[2017-04-01] MEDS: ENOXAPARIN 40 MG/0.4 ML SYRINGE SUBCUT SCH (08:48)
[2017-04-01] MEDS: INSULIN LISPRO 100 UNIT/ML SUBCUT SCH ×4 (08:49→20:39)
[2017-04-01] MEDS: CHLORHEXIDINE 0.12% ORAL RINSE 60 ML BOTTLE SWISH/SPIT SCH ×2 (08:52→20:40)
--- NOTE | 2017-04-01 08:53 | Hospitalist Progress Note ---
Assessment and Plan (1) Diabetes mellitus, insulin dependent (IDDM), uncontrolled Status: Acute Assessment and plan: Blood glucose levels remain markedly elevated since admission. Hemoglobin A1c obtained at the time of admission was noted at 13.5. This is a indication of poor glycemic control. We will consult the early childhood educator aide for reeducation. In addition, we will increase the p.m. Lantus dose to 25 units at bedtime and increase the NPH dose to 25 units daily. We will monitor blood glucose levels throughout the clinical encounter and adjust as needed. 03/30-blood glucose levels remain moderately elevated. Insulin doses were adjusted on yesterday. I feel that the fluctuations and the patient's glucose levels are secondary to the current infectious process. We will continue monitor blood glucose levels closely. 03/31-continue Accu-Cheks with sliding scale coverage. 04/01-we will continue Accu-Cheks with sliding scale coverage as previously ordered. Current Visit: Yes Qualifiers: Diabetes mellitus complication status: with unspecified complications Qualified Code(s): E10.8 - Type 1 diabetes mellitus with unspecified complications; E10.65 - Type 1 diabetes mellitus with hyperglycemia (2) Mandibular abscess Status: Acute Assessment and plan: The patient's face remains edematous. We will continue IV antibiotic coverage as previously ordered. We will await OMF evaluation for further recommendations. 03/30-patient seen and evaluated by OMFS on yesterday. We appreciate the input. We agree with the plan for scheduled I&D and tooth extraction on this a.m. 03/31-postop day 1 status post I&D and tooth extraction on yesterday by OMFS. We appreciate the input. We will continue IV antibiotic coverage as previously ordered. 04/01-postop day #2 status post I&D and tooth extraction by OMFS. Right-sided facial edema remains. We will continue antibiotic coverage as previously ordered. Continue pain management and rehydration. Current Visit: Yes Hospitalist: Subjective Interval history: Patient seen and evaluated; chart reviewed. No significant overnight events reported per staff. Postop day #2 status post I&D and tooth extraction by OMFS. Exam - Constitutional Vitals: Period Temp Pulse Resp BP Sys/Reinoso Pulse Ox Last 24 Hr 97.7 F-98.4 F 74-91 16-18 108-122/51-75 95-99 General appearance: normal weight, no acute distress - Head Head exam: Present: normal inspection, normocephalic, atraumatic - Eye Eye exam: Present: EOMI. Absent: conjunctival injection Pupils: Present: HÉCTOR, normal accommodation - ENT ENT exam: Present: other (Right-sided facial edema noted) - Neck Neck exam: Present: normal inspection, other (Right-sided neck edema noted) - Respiratory Respiratory exam: Present: clear to auscultation bilaterally. Absent: rales, rhonchi, stridor, wheezes - Cardiovascular Cardiovascular exam: Present: regular rate and rhythm. Absent: carotid bruit, diastolic murmur, gallop, JVD, rubs, systolic murmur - GI/Abdominal GI/Abdominal exam: Present: normal bowel sounds, soft - Extremities Exam Extremities exam: Present: normal inspection, normal capillary refill, full ROM. Absent: edema - Back Exam Back exam: Present: normal inspection - Neurological Exam Neurological exam: Present: alert, oriented X3, CN II-XII intact - Psychiatric Psychiatric exam: Present: normal affect, normal mood - Skin Skin exam: Present: normal color, warm, dry Results - Labs CBC & BMP: 04/01/17 04:27 04/01/17 04:27 Lab Results: I have reviewed the past 24 hour labs
--- NOTE | 2017-04-01 12:24 | Hospitalist Progress Note ---
Assessment and Plan (1) Diabetes mellitus, insulin dependent (IDDM), uncontrolled Status: Acute Assessment and plan: The patient is a type I diabetic. He normally takes 18 units of NPH in the morning and 16 of Lantus in the evening. His daytime sugars have been elevated somewhat so doses were increased to 25 of each. These are both basically basal insulins. It is highly nonconventional to prescribe both NPH and Lantus for basal insulin. The morning NPH he has been getting should be gone by evening. Then the Lantus starts in the evening for 24 hours. This appears to be an attempt to control both his daytime carbohydrate induced glucose elevations with NPH. Technically basal insulin should be just that, ie basal and mealtime excursions should be handled by rapid acting bolus which he has not been getting. He has never been educated on the use of quick-acting insulin to control mealtime carbohydrate excursions plus sliding scale. His glucose this morning was 84. This reflects the Lantus overnight effect as a basal insulin since all the NPH should have been gone by yesterday evening. Basal insulin should be dosed to keep morning fasting glucose in the 100-125 range. Morning glucose of 84 indicates 25 units of total basal Lantus insulin is too much. He admits he does not always use Lantus at home because he cannot afford it. He can afford the NPH. A better regimen for him would be to give his total basal insulin as NPH split twice daily and not to use the Lantus which he cannot afford. Based on this morning's glucose after receiving 25 units of Lantus last night is 24 basal insulin requirement should be around 18-20 units. We will DC the Lantus and change NPH to 10 units twice daily as again basal insulins absolutely cannot control daytime excursions. In the hospital these will be dealt with with his sliding scale however I explained to him that he can be prescribed R insulin at discharge and he can use it as a sliding scale to cover elevations in his glucose caused by eating starches with meals or he can use Novolin R with meals where he will be eating starches to prevent post prandial glucose elevations. I also told him that with a 24-hour basal dose of 20 units that usually 1/10 of this or 2 units would be the dose of R he would use for each 15 g carbohydrate portion at mealtime for more conventional mealtime bolus dosing. He needs to be taught to use Novolin R insulin for sliding scale at discharge as he cannot afford the analog insulins ie Humalog or Novolog. For him this would be the low sliding scale range. His morning fasting blood sugar tomorrow should indicate whether 10 units NPH every 12 hours is adequate for him. If morning sugar is still below 90 then this dose should be dropped probably to 8 units twice daily. If morning blood glucose is elevated above 130 then NPH should be increased to 11 or 12 units twice daily. He needs to have one basal insulin dose symmetrically i.e. NPH split every 12 hours. And again he can use Novolin R to cover carbohydrates eaten with his meals. I told him this would likely be 1-2 units of R for each 15 g carbohydrate portion. He can also use Novolin R for a low sliding scale. I also explained to him that being a type I diabetic he should never miss any basal insulin doses in his case would be NPH twice daily to prevent lapsing into DKA. I also told him that even if he is nauseated and not eating any food he still needs to take the same basal insulin dose every day. Current Visit: Yes Qualifiers: Diabetes mellitus complication status: with unspecified complications Qualified Code(s): E10.8 - Type 1 diabetes mellitus with unspecified complications; E10.65 - Type 1 diabetes mellitus with hyperglycemia (2) Mandibular abscess Status: Acute Assessment and plan: He is doing well. Swelling is improving. He should be ready for discharge in a day or 2 Current Visit: Yes Hospitalist: Subjective Interval history: I saw and examined the patient in conjunction with nurse practitioner. The patient is feeling better. He is eating regular he said he is drinking well. Solid food diabetic diet. He feels his facial swelling and pain is improving. Exam - Constitutional Vitals: Period Temp Pulse Resp BP Sys/Reinoso Pulse Ox Last 24 Hr 97.4 F-98.5 F 68-90 16-18 108-127/51-81 95-100 - Respiratory Respiratory exam: Present: clear to auscultation bilaterally - Cardiovascular Cardiovascular exam: Present: regular rate and rhythm. Absent: systolic murmur Results - Labs CBC & BMP: 04/01/17 04:27 04/01/17 04:27
[2017-04-02] MEDS: PIPERACILLIN/TAZOBACTAM 3,375 MG in SODIUM CHLORIDE 0.9% 100 ML IV SCH ×3 (03:35→18:31)
[2017-04-02] MEDS: INSULIN LISPRO 100 UNIT/ML SUBCUT SCH ×4 (07:59→21:03)
[2017-04-02] MEDS: ENOXAPARIN 40 MG/0.4 ML SYRINGE SUBCUT SCH ×2 (08:10→08:12)
[2017-04-02] MEDS: PANTOPRAZOLE 40 MG TABLET PO SCH (08:10)
[2017-04-02] MEDS: CHLORHEXIDINE 0.12% ORAL RINSE 60 ML BOTTLE SWISH/SPIT SCH (08:10)
[2017-04-02] MEDS: LACTOBACILLUS RHAMNOSUS GG CAPSULE PO SCH ×2 (08:10→21:02)
[2017-04-02] MEDS: INSULIN NPH 100 UNIT/ML SUBCUT SCH ×2 (08:25→21:02)
--- NOTE | 2017-04-02 08:53 | Hospitalist Progress Note ---
<Alirio Fink - Last Filed: 04/02/17 08:51> Assessment and Plan (1) Diabetes mellitus, insulin dependent (IDDM), uncontrolled Status: Acute Assessment and plan: Blood glucose levels remain markedly elevated since admission. Hemoglobin A1c obtained at the time of admission was noted at 13.5. This is a indication of poor glycemic control. We will consult the certified adapted physical educator for reeducation. In addition, we will increase the p.m. Lantus dose to 25 units at bedtime and increase the NPH dose to 25 units daily. We will monitor blood glucose levels throughout the clinical encounter and adjust as needed. 03/30-blood glucose levels remain moderately elevated. Insulin doses were adjusted on yesterday. I feel that the fluctuations and the patient's glucose levels are secondary to the current infectious process. We will continue monitor blood glucose levels closely. 03/31-continue Accu-Cheks with sliding scale coverage. 04/01-we will continue Accu-Cheks with sliding scale coverage as previously ordered. Current Visit: Yes Qualifiers: Diabetes mellitus complication status: with unspecified complications Qualified Code(s): E10.8 - Type 1 diabetes mellitus with unspecified complications; E10.65 - Type 1 diabetes mellitus with hyperglycemia (2) Mandibular abscess Status: Acute Assessment and plan: The patient's face remains edematous. We will continue IV antibiotic coverage as previously ordered. We will await OMF evaluation for further recommendations. 03/30-patient seen and evaluated by [facility] on yesterday. We appreciate the input. We agree with the plan for scheduled I&D and tooth extraction on this a.m. 03/31-postop day 1 status post I&D and tooth extraction on yesterday by OMFS. We appreciate the input. We will continue IV antibiotic coverage as previously ordered. 04/01-postop day #2 status post I&D and tooth extraction by [facility]. Right-sided facial edema remains. We will continue antibiotic coverage as previously ordered. Continue pain management and rehydration. 04/02-postop day 3 status post I&D tooth extraction by [facility]. The patient remains mildly edematous to the right side of his face. We will continue antibiotic coverage as previously ordered. The patient's diet has been advanced to a soft diet. We will continue IV antibiotics today. We will change to p.o. antibiotics tomorrow in preparation for possible discharge tomorr or Wednesday. Current Visit: Yes Hospitalist: Subjective Interval history: Patient seen and examined; chart reviewed. No significant overnight events reported per staff. Postop day 3 status post I&D and tooth extraction. The patient's diet was advanced to soft diet on yesterday. We will continue IV antibiotics today and transition to p.o. antibiotics tomorrow in preparation for discharge on possibly or Wednesday. Exam - Constitutional Vitals: Period Temp Pulse Resp BP Sys/Reinoso Pulse Ox Last 24 Hr 97 F-98.5 F 68-84 16-18 106-132/52-78 92-100 General appearance: normal weight, no acute distress - Head Head exam: Present: normal inspection, normocephalic, atraumatic - Eye Eye exam: Present: EOMI, conjunctival injection Pupils: Present: HÉCTOR, normal accommodation - ENT ENT exam: Present: other (Mild right-sided facial edema) - Neck Neck exam: Present: other (Mild right-sided facial edema). Absent: normal inspection - Respiratory Respiratory exam: Present: clear to auscultation bilaterally. Absent: rales, rhonchi, stridor, wheezes - Cardiovascular Cardiovascular exam: Present: regular rate and rhythm. Absent: carotid bruit, diastolic murmur, gallop, JVD, rubs, systolic murmur - GI/Abdominal GI/Abdominal exam: Present: normal bowel sounds, soft - Extremities Exam Extremities exam: Present: normal inspection, normal capillary refill, full ROM. Absent: edema - Back Exam Back exam: Present: normal inspection - Neurological Exam Neurological exam: Present: alert, oriented X3, CN II-XII intact - Psychiatric Psychiatric exam: Present: normal affect, normal mood - Skin Skin exam: Present: normal color, warm, dry Results - Labs CBC & BMP: 04/01/17 04:27 04/01/17 04:27 Lab Results: I have reviewed the past 24 hour labs <Sherron Kingstonl - Last Filed: 04/02/17 13:45> Exam - Constitutional Vitals: Period Temp Pulse Resp BP Sys/Reinoso Pulse Ox Last 24 Hr 97 F-98.1 F 74-84 16-18 106-132/52-78 92-100 Results - Labs CBC & BMP: 04/01/17 04:27 04/01/17 04:27
[2017-04-02] MEDS: CLINDAMYCIN 300 MG CAPSULE PO SCH ×2 (11:54→17:15)
[2017-04-03] MEDS: CHLORHEXIDINE 0.12% ORAL RINSE 60 ML BOTTLE SWISH/SPIT SCH ×2 (01:01→08:36)
[2017-04-03] MEDS: CLINDAMYCIN 300 MG CAPSULE PO SCH ×2 (01:01→07:40)
[2017-04-03] MEDS: PIPERACILLIN/TAZOBACTAM 3,375 MG in SODIUM CHLORIDE 0.9% 100 ML IV SCH (03:31)
[2017-04-03 06:55] LABS: Basophils # 0.1 10*3/uL (0.0-0.2); Basophils % 1.1 % (0.0-0.8); Eosinophils # 0.1 10*3/uL (0.0-0.87); Eosinophils % 2.1 % (0.00-10.9); Hematocrit 37.3 VOL% (42.0-52.0); Hemoglobin 11.9 GM/DL (14.0-18.0); Immature Granulocytes % 0.9 %; Immature Granulocytes Absolute 0.05 #; Lymphocytes # 2.4 10*3/uL (1.4-4.0); Lymphocytes % 45.3 % (21.2-54.2); Mean Corpuscular HGB Conc 31.9 GM/DL (32-36); Mean Corpuscular Hemoglobin 25 PG (27-34); Mean Corpuscular Volume 78.7 FL (87-102); Mean Platelet Volume 9.2 FL (9.6-12.0); Monocytes # 0.4 10*3/uL (0.11-0.8); Monocytes % 8.3 % (1.7-12.7); Neutrophils # 2.3 10*3/uL (1.4-7.4); Neutrophils % 42.3 % (38.7-73.9); Platelet Count 523 T/CUMM (130-400); Red Blood Count 4.74 MC/CUMM (3.8-5.5); Red Cell Distribution Width 12.7 % (9.3-17.3); White Blood Count 5.3 T/CUMM (4-12)
[2017-04-03 07:31] LABS: Alanine Aminotransferase 13 U/L (16-61); Albumin 1.8 G/DL (3.4-5.0); Alkaline Phosphatase 120 U/L (45-117); Aspartate Amino Transferase 20 U/L (0-37); Bilirubin,Total < 0.39 MG/DL (0.2-1.0); Blood Urea Nitrogen 11 MG/DL (7-18); Calcium 8.5 MG/DL (8.5-10.1); Glucose 326 MG/DL (74-106); Magnesium 1.8 MG/DL (1.8-2.4); Osmolality,Calculated 290.4 MOS/KG (273-304); Phosphorous 4.1 MG/DL (2.5-4.9); Potassium 4.3 MMOL/L (3.5-5.1); Sodium 140 MMOL/L (136-145); Total Protein 5.2 G/DL (6.4-8.3)
--- NOTE | 2017-04-03 07:55 | Discharge Summary ---
Hospital Course - Hospital Course Hospital Course: This is a very pleasant 22-year-old male that presented to the ED at [facility] on the night of March 27, 2017 further evaluation of right jaw swelling, sore throat, and headache. Patient has a medical history significant for insulin-dependent diabetes mellitus however, reported no significant surgical history. The patient reported the onset of symptoms 2 weeks prior to presentation he reported that he had a gradual onset of fever, nasal drainage, dry cough, sneezing, right ear pain, right-sided jaw swelling, sore throat, and headache. He reported that in the week prior to presentation, that his symptoms became severe and he was unable to open his mouth. He reported that he had been seen in the outpatient setting by his primary care physician diagnosed, with a sinus infection, given oral antibiotics, and sent home. He reported that his symptoms fail to improve prompting him to present to the ED for further evaluation. The patient was assessed at the time of ED presentation. The patient was noted to have gross facial edema upon examination. Labs were obtained which were significant for hemoglobin 13.4, hematocrit 41.4, sodium 133, chloride 96, alkaline phosphatase 120, albumin 2.6, C-reactive protein 8.42, Bhydroxybutyric acid 6.1, and glucose at 352. Influenza, rapid strep confirmation, and infectious mononucleosis as a were essentially negative. Chest x-ray was essentially unremarkable. CT soft tissue neck was significant for inflammation/ abscess affecting the right submandibular area. In addition, the presence of a right third molar dental caries and periapical abscess was noted to the patient was subsequently admitted to the hospitalist service for continuation of care. Empiric antibiotic coverage, rehydration, and diabetes management was initiated at the time of admission. An oral maxillofacial surgery consultation was requested. The patient was evaluated and recommendations were given. On March 30, 2017, the patient underwent incision and drainage of the right masseteric space abscess with the extraction of tooth #32. Antibiotic coverage , rehydration, and diabetes management continued. The patient's condition gradually improved. The patient's diet was advanced and he was able to tolerate solid foods. The patient's condition is stable. He has not experienced any significant overnight events. Today, we feel that he is indeed appropriate for discharge to follow-up with his primary care physician and dentist as indicated. The patient will be discharged with orders to continue clindamycin 300 mg by mouth every 6 hours for the next 14 days. We spoke with the patient in great detail regarding the merits of proper glycemic control. At the time of admission, the patient's hemoglobin A1c was grossly elevated at 13.5 pharmaceutical specialty representative of poor glycemic control. We discussed undesired conditions associated with poor glycemic control. Diagnosis - Discharge Diagnosis (1) Diabetes mellitus, insulin dependent (IDDM), uncontrolled Status: Chronic (2) Mandibular abscess Status: Resolved Specialty Discharge - Follow Up or Referrals - Speciality Discharge Instructions Hospitalist Instructions: Continue to take all medications as ordered. Follow- up with your dentist in primary care physician in 7-10 days. Oral Surgery Instructions: Continue Peridex oral rinse as ordered. Continue and complete antibiotics as ordered. Follow-up with your dentist in 7-10 days. Discharge Plan - Discharge Data Disposition: Disch To Home/Self Care Discharge Diet: advance to your usual diet Activity: resume usual activities as tolerated Hygiene: no restrictions, may shower Weight Bearing at Discharge: full weight bearing Driving: no restrictions Contact your physician if you experience:: fever over 101, Difficulty voiding, Redness or swelling, Nausea/Vomiting, Shortness of breath - Discharge Medications New Chlorhexidine 0.12% Oral Rinse [Peridex] 15 ml SWISH/SPIT BID #1 bottle Clindamycin Cap [Cleocin Cap] 300 mg PO Q6HR #56 capsule HYDROcodone/ACETAMIN 7.5-325 [[place] 7.5-325] 1 tablet PO Q4H PRN #14 tablet PRN Reason: Pain Moderate (4-7) Insulin NPH [HumuLIN N] 10 unit SUBCUT Q12H #1 unit Pantoprazole Tab [Protonix Tab] 40 mg PO DAILY #30 tablet Lactobacillus Rhamnosus GG [Culturelle] 1 capsule PO BID #14 capsule Continue Insulin Glargine [Lantus] 16 units SUBCUT BEDTIME #1 Discontinued Insulin NPH Human Isophane [NovoLIN N] 18 units SUBCUT DAILY Insulin Aspart [NovoLOG] 0 - 15 units SUBCUT DIRECTED - Follow Up or Referral - Forms/Instructions Instructions: Clindamycin (By mouth), Hydrocodone/Acetaminophen (By mouth), Pantoprazole (By mouth), Insulin NPH/Regular (Injection), Probiotic (By mouth), Insulin Glargine (Injection) Exam - Constitutional Vitals: Period Temp Pulse Resp BP Sys/Reinoso Pulse Ox Last 24 Hr 97.2 F-98.0 F 72-80 18-20 109-127/60-80 96-98 General appearance: normal weight, no acute distress - Head Head exam: Present: normal inspection, normocephalic, atraumatic, other (Right- sided trace facial edema) - Eye Eye exam: Present: EOMI, conjunctival injection Pupils: Present: HÉCTOR, normal accommodation - ENT ENT exam: Present: normal exam, normal external ear exam, normal oropharynx - Neck Neck exam: Present: normal inspection. Absent: lymphadenopathy, meningismus, tenderness, thyromegaly - Respiratory Respiratory exam: Present: clear to auscultation bilaterally - Cardiovascular Cardiovascular exam: Present: regular rate and rhythm - GI/Abdominal GI/Abdominal exam: Present: normal bowel sounds - Extremities Exam Extremities exam: Present: normal inspection, normal capillary refill, full ROM. Absent: edema - Back Exam Back exam: Present: normal inspection - Neurological Exam Neurological exam: Present: alert, oriented X3, CN II-XII intact - Psychiatric Psychiatric exam: Present: normal affect, normal mood - Skin Skin exam: Present: normal color, warm, dry Discharge Results Labs on day of discharge: Labs from last 24 hours 04/03/17 04/03/17 04/03/17 07:07 06:17 06:17 WBC 5.3 RBC 4.74 Hgb 11.9 L Hct 37.3 L MCV 78.7 L MCH 25 L MCHC 31.9 L RDW 12.7 Plt Count 523 H D MPV 9.2 L Neut % (Auto) 42.3 Lymph % (Auto) 45.3 [place] % (Auto) 8.3 Eos % (Auto) 2.1 Baso % (Auto) 1.1 H Neut # (Auto) 2.3 Lymph # (Auto) 2.4 [place] # (Auto) 0.4 Eos # (Auto) 0.1 Baso # (Auto) 0.1 Immature Gran % 0.9 Nucleated RBC % 0.0 Immature Gran # 0.05 Nucleated RBCs # 0.00 Immature Plt Fraction 0.0 Sodium 140 Potassium 4.3 Chloride 103 Carbon Dioxide 30 Anion Gap 11.3 BUN 11 Creatinine 0.70 GFR Calculation 163 BUN/Creatinine Ratio 15.00 Glucose 326 H POC Glucose 347 H Calculated Osmolality 290.4 Calcium 8.5 Phosphorus 4.1 Magnesium 1.8 Total Bilirubin < 0.39 AST 20 ALT 13 L Alkaline Phosphatase 120 H Total Protein 5.2 L Albumin 1.8 L Globulin 3.4 Albumin/Globulin Ratio 0.5 L 04/02/17 04/02/17 19:09 15:29 WBC RBC Hgb Hct MCV MCH MCHC RDW Plt Count MPV Neut % (Auto) Lymph % (Auto) [place] % (Auto) Eos % (Auto) Baso % (Auto) Neut # (Auto) Lymph # (Auto) [place] # (Auto) Eos # (Auto) Baso # (Auto) Immature Gran % Nucleated RBC % Immature Gran # Nucleated RBCs # Immature Plt Fraction Sodium Potassium Chloride Carbon Dioxide Anion Gap BUN Creatinine GFR Calculation BUN/Creatinine Ratio Glucose POC Glucose 223 H 261 H Calculated Osmolality Calcium Phosphorus Magnesium Total Bilirubin AST ALT Alkaline Phosphatase Total Protein Albumin Globulin Albumin/Globulin Ratio DS: Provider Date of admission: 03/28/17 08:42 Primary care physician: . No PCP Attending physician on admission: Pamela Chris MD Consults: 03/28/17 00:19 Consult to Physician [CONS] Routine Comment: dental abscess Consulting Provider: Singh Arce Person Notified: aware Date Notified: 03/28/17 Time Notified: 10:29 03/28/17 10:52 Consult to Physical Therapy [CONS] Routine Reason for Physical Therapy: Evaluate and Treat Consult Comment: Patient has trismus complicating dental infection 03/29/17 09:03 Consult to [facility], Educator [CONS] Routine Reason for Train Caller: Re-education Discharging clinician: Alirio Fink, WM
[2017-04-03] MEDS: INSULIN LISPRO 100 UNIT/ML SUBCUT SCH (08:34)
[2017-04-03] MEDS: INSULIN NPH 100 UNIT/ML SUBCUT SCH (08:35)
[2017-04-03] MEDS: LACTOBACILLUS RHAMNOSUS GG CAPSULE PO SCH (08:35)
[2017-04-03] MEDS: PANTOPRAZOLE 40 MG TABLET PO SCH (08:36)
[2017-04-03] MEDS: ENOXAPARIN 40 MG/0.4 ML SYRINGE SUBCUT SCH (08:55)
[2017-04-03 10:14] VITALS: BP 113/79
--- NOTE | 2017-04-21 18:26 | Operative Note ---
DATE OF PROCEDURE: 03/30/2017 PREOPERATIVE DIAGNOSES: 1. Right submandibular abscess. 2. Caries, tooth # 32. POSTOPERATIVE DIAGNOSES: SAME. OPERATIVE PROCEDURE: 1. Incision and drainage of right submandibular abscess. 2. Surgical extraction, tooth # 32. SURGEON: Singh Arce DMD, MD CLOTH REELER: None ANESTHESIA: General anesthesia via orotracheal tube. DESCRIPTION OF PROCEDURE: The patient was taken to the operating area in a sedated condition and geno herbert in supine position on the operating room table. After the successful induction of anesthesia and the placement of an oral endotracheal tube, the patient was prepped and draped in the usual manner f or an intraoral surgical procedure. Attention was directed intraorally. The oropharynx was suctione d free of all secretions and debris. A moistened throat pack was placed about the endotracheal tube. Lidocaine 2% with 1:100, 000 epinephrine was then infiltrated into the right mandible to get right inferior alveolar nerve blocks. After placement of local anesthetic, a # 15 blade was used to expose tooth # 32. Tooth was elevated and extracted completely without any complications. The area was cu rettage, irrigated with normal saline solution and left open. A #15 blade was then used again to ned e a crestal incision about the right posterior mandible to expose the right posterior mandible. Blun t dissection was done to get to the inferior aspect of the right mandible. The entire area was then drained, approximately 2 cc of mucopurulence was drained subperiosteally. Irrigation was done copiou sly with normal saline solution and the entire area was left open until drains on its own. The moist ened throat pack was removed. Sponge count and needle counts were correct. The patient tolerated th e procedure well, extubated in the operating room, and transferred to the recovery area in stable con dition.
== END 2017-04-03 10:25 | disposition home or self-care (01) | DRG 159 ==
LOC: N.ED 19:17 → N.EDINP 19:17 → SUATTDRO 22:28 → N.5E 22:33 → SUATTDRO 03-28 08:42
PROVIDERS: ADMIT Family Medicine; ATTEND Internal Medicine